=== PATIENT | male | born 1990 | race Caucasian/White ===

== ENCOUNTER 2016-07-29 14:12 | Observation (INO) | payer BC ==
[2016-07-29] MEDS ORDERED: NS 1,000 ML IV ONE ×2 (14:33→16:06)
[2016-07-29] MEDS ORDERED: DIAZEPAM 10 MG/2 ML SYR IVP ONE (14:35)
[2016-07-29] MEDS ORDERED: ONDANSETRON 4 MG/2 ML VIAL IVP ONE (14:36)
--- NOTE | 2016-07-29 14:40 | CPEKG ---
Heart Rate: 90 RR Interval: 667 P-R Interval: 164 QRSD Interval: 90 QT Interval: 360 QTC Interval: 441 P [place]: 83 QRS [place]: 82 T Wave [place]: 33 EKG Severity - NORMAL ECG - EKG Impression: SINUS RHYTHM Electronically Signed By: Mp Sol 29-Jul-2016 17:28:28
--- NOTE | 2016-07-29 14:43 | EDPHY ---
H & P Time Seen by Provider: 07/29/16 14:23 HPI/ROS: HPI Confusion, numbness in body. 25-year-old male by private vehicle with his friends. This patient reports that over the last 2 weeks he has had intermittent episodes of feeling fatigued and a sensation of numbness and tingling in his hands and feet. He reports that this morning he got up and then went out with his friends for a late lunch at a brew house. He had some barbecue and about 2 hours prior to arrival states he started developing a sensation of numbness and tingling in both hands and feet which then spread through his body. Reports that he then felt confused and was having a difficult time concentrating and focusing on his thoughts and answering questions. He states that he has had episodes similar to this but not as severe in the past. He denies any significant past medical history. No prescription medications. He denies any recent illness or infectious process. He does not have a headache. No neck pain. No fever. ROS: Constitutional: No fever, no chills. As above. Eyes: No discharge. No changes in vision. ENT: No sore throat. No nasal congestion or rhinorrhea. Respiratory: No cough. No shortness of breath. Cardiac: No chest pain, no palpitations. Gastrointestinal: No abdominal pain, no vomiting, no diarrhea. Genitourinary: No hematuria. No dysuria or increased frequency with urination. Musculoskeletal: No back pain. No neck pain. No myalgias or arthralgias. Skin: No rashes. Neurological: No headache. No focal weakness. As above. Past medical history: Social history: Nonsmoker. Denies drugs. Social alcohol. Here with his friends. Physical Exam: General Appearance: Alert but mildly sleepy. Difficulty concentrating and answering questions. Needs to refocus repeatedly. This patient appears well- hydrated and well-nourished. Eyes: Pupils equal and round no pallor or injection. No lid edema, erythema or injection. No photophobia. No nystagmus. ENT, Mouth: Mucous membranes are moist. The pharyngeal tissues are unremarkable. No edema or swelling. No asymmetry suggestive of abscess. No erythema or exudates. No tongue lacerations or abrasions. Respiratory: There are no retractions, lungs are clear to auscultation with good air movement bilaterally. Cardiovascular: Regular rate and rhythm. Borderline tachycardia. No murmur. Gastrointestinal: Abdomen is soft and nontender, no masses, bowel sounds normal. No focal tenderness at McBurney's point. No Vaughan sign. Neurological: Motor sensory function is grossly intact. Cranial nerves are normal. Gait is normal. Skin: Warm and dry, no rashes. Musculoskeletal: Neck is supple and nontender. No pain on flexion of the neck. Extremities are symmetrical. All joints range without pain or impingement. Psychiatric: No agitation. No depression. Database: EKG: EKG time is 2:38 p.m.; EKG shows a narrow complex normal sinus rhythm with a ventricular rate of 90. The AR, QRS, QT intervals are within normal limits. There are no ST-T wave changes indicative of ischemic or injury pattern. No evidence of right heart strain. Interpreted by me. Imaging: CT scan of head without contrast: Negative. Results were discussed with staff radiologist Dr. Jimenez Sebastian. Procedures: Emergency department course: IV placed. He was placed on a cardiac cath tech. Point of care glucose was 110. EKG performed. Patient will be sent for CT imaging of his brain. Patient's presentation is more consistent with an anxiety type reaction. Infectious etiology such as meningitis, encephalitis as well as CVA less likely. Patient given 5 mg of IV Valium. 3:20 p.m., patient re-evaluated. Resting comfortably. Mildly drowsy. Now responding to questions appropriately. States that he feels better. Still feels strange as in numbness in his hands and feet. Patient informed me that for the last couple of weeks he has had this sensation but not as bad, associated with eating and particularly after meals. Results of his diagnostic studies discussed with him. 4:00 p.m., discussed with on-call neurologist, Dr. Griffin Zacarias. Considered lumbar puncture. Dr. Zacarias is not think this is necessary at this time. I am in agreement. Patient's presentation is not consistent with meningitis, encephalitis or subarachnoid hemorrhage. Differential diagnosis discussed with Dr. Zacarias includes seizure, atypical migraine. Plan will be to obtain an MRI of the brain with and without contrast and start the patient on Topamax 25 mg twice daily. We will admit the patient to the hospitalist service. Dr. Zacarias will see this patient on admission to the floor. This plan was discussed with the patient and his friends. All of her questions were answered. The patient was admitted under the hospitalist service in stable and improved condition. Differential Diagnosis: The differential diagnosis on this patient includes but is not limited to anxiety reaction, seizure, hypokalemic periodic paralysis, CVA, toxicological etiology, MS, myasthenia gravis, Guillain-Abell syndrome, meningitis. This represents a partial list of diagnoses considered. These considerations are based on history, physical exam, past history, reassessment and diagnostic testing. Smoking Status: Unknown if ever smoked Constitutional: Initial Vital Signs Temperature (C) 36.9 C 07/29/16 14:17 Heart Rate 141 H 07/29/16 14:17 Respiratory Rate 38 H 07/29/16 14:17 Blood Pressure 123/104 H 07/29/16 14:17 O2 Sat (%) 94 07/29/16 14:17 O2 Delivery Mode Room Air Allergies/Adverse Reactions: No Known Allergies Allergy (Unverified 07/29/16 14:17) Home Medications: Medication Instructions Recorded NK [No Known Home Meds] 07/29/16 Medical Decision Making - Diagnostics Imaging Results: Imaging Impressions Head CT 07/29/16 14:34 Impression: Normal noncontrast CT of the brain. Results called to Dr. Cowan at 1515 p.m. at the time of the interpretation. - Data Points Laboratory Results: Laboratory Results 07/29/16 14:40 07/29/16 14:40 07/29/16 07/29/16 07/29/16 14:42 14:40 14:40 WBC RBC Hgb Hct MCV MCH MCHC RDW Plt Count MPV Neut % (Auto) Lymph % (Auto) [place] % (Auto) Eos % (Auto) Baso % (Auto) Nucleat RBC Rel Count Absolute Neuts (auto) Absolute Lymphs (auto) Absolute Monos (auto) Absolute Eos (auto) Absolute Basos (auto) Absolute Nucleated RBC Immature Gran % Immature Gran # PT 12.8 SEC SEC (12.0-15.0) INR 0.97 (0.83-1.16) APTT 23.8 SEC SEC (23.0-38.0) Sodium 141 mEq/L mEq/L (134-144) Potassium 4.0 mEq/L mEq/L (3.5-5.2) Chloride 105 mEq/L mEq/L (97-110) Carbon Dioxide 21 mEq/l L mEq/l (22-31) Anion Gap 15 mEq/L mEq/L (8-16) BUN 13 mg/dL mg/dL (7-23) Creatinine 1.6 mg/dL H mg/dL (0.7-1.3) Estimated GFR 53 Glucose 106 mg/dL H mg/dL (70-100) POC Glucose Calcium 10.4 mg/dL mg/dL (8.5-10.4) Total Bilirubin 1.1 mg/dL mg/dL (0.1-1.4) Conjugated Bilirubin 0.4 mg/dL mg/dL (0.0-0.5) Unconjugated Bilirubin 0.7 mg/dL mg/dL (0.0-1.1) AST 25 IU/L IU/L (17-59) ALT 28 IU/L IU/L (21-72) Alkaline Phosphatase 61 IU/L IU/L (38-126) Total Protein 8.6 g/dL H g/dL (6.3-8.2) Albumin 5.2 g/dL H g/dL (3.5-5.0) Urine Color COLORLESS Urine Appearance CLEAR Urine pH 8.0 H (5.0-7.5) Ur Specific [place] 1.001 L (1.002-1.030) Urine Protein NEGATIVE (NEGATIVE) Urine Ketones NEGATIVE (NEGATIVE) Urine Blood NEGATIVE (NEGATIVE) Urine Nitrate NEGATIVE (NEGATIVE) Urine Bilirubin NEGATIVE (NEGATIVE) Urine Urobilinogen NEGATIVE EU EU (0.2-1.0) Ur Leukocyte Esterase NEGATIVE (NEGATIVE) Urine RBC 1-3 /hpf /hpf (0-3) Urine WBC 1-3 /hpf /hpf (0-3) Ur Epithelial Cells TRACE /lpf /lpf (NONE-1+) Urine Bacteria TRACE /hpf H /hpf (NONE SEEN) Urine Glucose NEGATIVE (NEGATIVE) Urine Opiates Screen NEGATIVE (NEGATIVE) Urine Barbiturates NEGATIVE (NEGATIVE) Ur Phencyclidine Scrn NEGATIVE (NEGATIVE) Ur Amphetamine Screen NEGATIVE (NEGATIVE) U Benzodiazepines Scrn NEGATIVE (NEGATIVE) Urine Cocaine Screen NEGATIVE (NEGATIVE) U Marijuana (THC) Screen NEGATIVE (NEGATIVE) Ethyl Alcohol < 10 mg/dL mg/dL (0-10) 07/29/16 07/29/16 14:40 14:31 WBC 7.16 10^3/uL 10^3/uL (3.80-9.50) RBC 5.27 10^6/uL 10^6/uL (4.40-6.38) Hgb 17.1 g/dL g/dL (13.7-17.5) Hct 46.0 % % (40.0-51.0) MCV 87.3 fL fL (81.5-99.8) MCH 32.4 pg pg (27.9-34.1) MCHC 37.2 g/dL H g/dL (32.4-36.7) RDW 11.9 % % (11.5-15.2) Plt Count 230 10^3/uL 10^3/uL (150-400) MPV 9.6 fL fL (8.7-11.7) Neut % (Auto) 73.8 % % (39.3-74.2) Lymph % (Auto) 15.6 % % (15.0-45.0) [place] % (Auto) 9.5 % % (4.5-13.0) Eos % (Auto) 0.4 % L % (0.6-7.6) Baso % (Auto) 0.3 % % (0.3-1.7) Nucleat RBC Rel Count 0.0 % % (0.0-0.2) Absolute Neuts (auto) 5.28 10^3/uL 10^3/uL (1.70-6.50) Absolute Lymphs (auto) 1.12 10^3/uL 10^3/uL (1.00-3.00) Absolute Monos (auto) 0.68 10^3/uL 10^3/uL (0.30-0.80) Absolute Eos (auto) 0.03 10^3/uL 10^3/uL (0.03-0.40) Absolute Basos (auto) 0.02 10^3/uL 10^3/uL (0.02-0.10) Absolute Nucleated RBC 0.00 10^3/uL 10^3/uL (0-0.01) Immature Gran % 0.4 % % (0.0-1.1) Immature Gran # 0.03 10^3/uL 10^3/uL (0.00-0.10) PT INR APTT Sodium Potassium Chloride Carbon Dioxide Anion Gap BUN Creatinine Estimated GFR Glucose POC Glucose 110 mg/dL H mg/dL (70-100) Calcium Total Bilirubin Conjugated Bilirubin Unconjugated Bilirubin AST ALT Alkaline Phosphatase Total Protein Albumin Urine Color Urine Appearance Urine pH Ur Specific [place] Urine Protein Urine Ketones Urine Blood Urine Nitrate Urine Bilirubin Urine Urobilinogen Ur Leukocyte Esterase Urine RBC Urine WBC Ur Epithelial Cells Urine Bacteria Urine Glucose Urine Opiates Screen Urine Barbiturates Ur Phencyclidine Scrn Ur Amphetamine Screen U Benzodiazepines Scrn Urine Cocaine Screen U Marijuana (THC) Screen Ethyl Alcohol Medications Given: Discontinued Medications Diazepam (Valium Injection) 5 mg IVP EDNOW ONE Stop: 07/29/16 14:36 Last Admin: 07/29/16 15:04 Dose: 5 mg Fentanyl (Sublimaze) 50 mcg IVP EDNOW ONE Stop: 07/29/16 15:57 Last Admin: 07/29/16 15:57 Dose: 50 mcg Sodium Chloride (Ns) 1,000 mls @ 0 mls/hr IV ONCE ONE PRN Reason: Wide Open Stop: 07/29/16 14:34 Last Admin: 07/29/16 14:48 Dose: 1,000 mls Sodium Chloride (Ns) 1,000 mls @ 0 mls/hr IV ONCE ONE PRN Reason: Wide Open Stop: 07/29/16 16:07 Last Admin: 07/29/16 16:07 Dose: 1,000 mls Ondansetron HCl (Zofran) 4 mg IVP EDNOW ONE Stop: 07/29/16 14:37 Last Admin: 07/29/16 14:36 Dose: 4 mg Topiramate (Topamax) 25 mg PO EDNOW ONE Stop: 07/29/16 16:15 Last Admin: 07/29/16 16:29 Dose: 25 mg Point of Care Test Results: 07/29/16 14:31 POC Glucose 110 H Departure - Departure Disposition: [facility] Inpatient Acute Clinical Impression: Altered mental status, Migraine with typical aura
[2016-07-29 14:46] LABS: % IMMATURE GRANULYOCYTES 0.4 % (0.0-1.1); ABSOLUTE IMMATURE GRANULOCYTES 0.03 10^3/uL (0.00-0.10); ADD DIFF? NO; ADD MORPH? NO; ADD SCAN? NO; ATYPICAL LYMPHOCYTE FLAG 0 (0-99); FRAGMENT RBC FLAG 0 (0-99); HEMOGLOBIN 17.1 g/dL (13.7-17.5); LEFT SHIFT FLG 0 (0-99); LIPEMIA HEMOLYSIS FLAG 90 (0-99); MEAN CELL HEMOGLOBIN 32.4 pg (27.9-34.1); MEAN CELL HEMOGLOBIN CONCENTR. 37.2 g/dL (32.4-36.7); MEAN CELL VOLUME 87.3 fL (81.5-99.8); MEAN PLATELET VOLUME 9.6 fL (8.7-11.7); PLATELET CLUMPS FLAG 0 (0-99); PLATELET COUNT 230 10^3/uL (150-400); RED BLOOD CELL COUNT 5.27 10^6/uL (4.40-6.38); RED CELL DISTRIBUTION WIDTH 11.9 % (11.5-15.2)
[2016-07-29] MEDS ORDERED: ONDANSETRON 4 MG/2 ML VIAL ONE (14:53)
[2016-07-29 14:54] LABS: INR 0.97 (0.83-1.16); PROTIME(PATIENT) 12.8 SEC (12.0-15.0)
[2016-07-29 14:55] LABS: APTT 23.8 SEC (23.0-38.0)
[2016-07-29 14:55] LABS: COLOR COLORLESS; LEUKOCYTE ESTERASE,URINE NEGATIVE (NEGATIVE); NITRITE,URINE NEGATIVE (NEGATIVE)
[2016-07-29 15:01] LABS: BACTERIA TRACE /hpf (NONE SEEN)
[2016-07-29 15:25] LABS: ALANINE AMINOTRANSFERASE 28 IU/L (21-72); ALBUMIN 5.2 g/dL (3.5-5.0); ALKALINE PHOSPHATASE 61 IU/L (38-126); ANION GAP 15 mEq/L (8-16); ASPARTATE AMINOTRANSFERASE 25 IU/L (17-59); BILIRUBIN,TOTAL 1.1 mg/dL (0.1-1.4); BILIRUBIN-CONJUGATED 0.4 mg/dL (0.0-0.5); BILIRUBIN-UNCONJUGATED 0.7 mg/dL (0.0-1.1); CALCIUM 10.4 mg/dL (8.5-10.4); CARBON DIOXIDE 21 mEq/l (22-31); CHLORIDE 105 mEq/L (97-110); CREATININE 1.6 mg/dL (0.7-1.3); ETHANOL SERUM < 10 mg/dL (0-10); GLOMERULAR FILTRATION RATE 53; GLUCOSE 106 mg/dL (70-100); SODIUM 141 mEq/L (134-144); TOTAL PROTEIN 8.6 g/dL (6.3-8.2)
[2016-07-29] MEDS ORDERED: fentaNYL 100 MCG/2 ML INJ ONE (15:45)
[2016-07-29] MEDS ORDERED: fentaNYL 100 MCG/2 ML INJ IVP ONE (15:56)
[2016-07-29] MEDS ORDERED: TOPIRAMATE 25 MG TAB PO ONE (16:14)
[2016-07-29] MEDS ORDERED: GADOBUTROL 10 ML VIAL IVP ONE (16:30)
--- NOTE | 2016-07-29 17:02 | PDGENHP ---
History and Physical - Chief Complaint confusion and numbness - History of Present Illness This is a 25-year-old male with history of migraine headaches visiting from [place] presents to the emergency department today with confusion and numbness. Patient was seen with his friend in the room who tells me that they were at [employer] for lunch today where he became nauseous, confused, numb all over shortly after eating lunch. He was noted to be hyperventilating by his friend. Patient tells me that overall he feels "Terrible". He does have left-sided sharp stabbing headache behind his eye. The headache is worse with bright lights and loud noises. He has some nausea but no vomiting. Currently his numbness is better. Denies any chest pain or shortness of breath. I spoke to the patient's mother tells me that over the past 5 weeks he has been having increasing migraines which she attributes to stress at school. The patient has not reported any loss of consciousness however his friends tell me that he has been confused and has needed help with simple tasks like providing his insurance card. Denies any fevers or chills. He denies neck stiffness. History Information - Allergies/Home Medication List Allergies/Adverse Reactions: No Known Allergies Allergy (Unverified 07/29/16 14:17) Home Medications: NK [No Known Home Meds] 07/29/16 [Last Taken Unknown] I have personally reviewed and updated: family history, medical history, social history, surgical history - Past Medical History migraines - Surgical History Reports: no pertinent surgical hx - Social History Smoking Status: Unknown if ever smoked Alcohol Use: Occasionally Drug Use: None Review of Systems ROS: 10pt was reviewed & negative except for what was stated in HPI & below Physical Exam Temp Pulse Resp BP Pulse Ox 36.3 C 100 18 129/80 H 94 07/29/16 16:49 07/29/16 16:49 07/29/16 16:49 07/29/16 16:49 07/29/16 16:49 Constitutional: appears nourished, uncomfortable Eyes: PERRL, anicteric sclera, EOMI, No icteric sclera Ears, Nose, Mouth, Throat: moist mucous membranes, hearing normal, ears appear normal, no oral mucosal ulcers Cardiovascular: regular rate and rhythym, no murmur, rub, or gallop, No edema Respiratory: no respiratory distress, no rales or rhonchi, clear to auscultation Gastrointestinal: normoactive bowel sounds, soft, non-tender abdomen, no palpable masses, No guarding, No rebound Genitourinary: no bladder fullness, no bladder tenderness Skin: warm, normal color, no rashes or abrasions, no fluctuance, no induration, No mottled Musculoskeletal: full muscle strength, no muscle tenderness, normal joint ROM, no joint effusions Neurologic: AAOx3, CN II-XII Intact, No weakness, No numbness, No facial droop Psychiatric: interacting appropriately, not anxious, not encephalopathic, thought process linear Lab Data & Imaging Review 07/29/16 14:40 07/29/16 14:40 WBC 7.16 10^3/uL (3.80-9.50) 07/29/16 14:40 RBC 5.27 10^6/uL (4.40-6.38) 07/29/16 14:40 Hgb 17.1 g/dL (13.7-17.5) 07/29/16 14:40 Hct 46.0 % (40.0-51.0) 07/29/16 14:40 MCV 87.3 fL (81.5-99.8) 07/29/16 14:40 MCH 32.4 pg (27.9-34.1) 07/29/16 14:40 MCHC 37.2 g/dL (32.4-36.7) H 07/29/16 14:40 RDW 11.9 % (11.5-15.2) 07/29/16 14:40 Plt Count 230 10^3/uL (150-400) 07/29/16 14:40 MPV 9.6 fL (8.7-11.7) 07/29/16 14:40 Neut % (Auto) 73.8 % (39.3-74.2) 07/29/16 14:40 Lymph % (Auto) 15.6 % (15.0-45.0) 07/29/16 14:40 [place] % (Auto) 9.5 % (4.5-13.0) 07/29/16 14:40 Eos % (Auto) 0.4 % (0.6-7.6) L 07/29/16 14:40 Baso % (Auto) 0.3 % (0.3-1.7) 07/29/16 14:40 Nucleat RBC Rel Count 0.0 % (0.0-0.2) 07/29/16 14:40 Absolute Neuts (auto) 5.28 10^3/uL (1.70-6.50) 07/29/16 14:40 Absolute Lymphs (auto) 1.12 10^3/uL (1.00-3.00) 07/29/16 14:40 Absolute Monos (auto) 0.68 10^3/uL (0.30-0.80) 07/29/16 14:40 Absolute Eos (auto) 0.03 10^3/uL (0.03-0.40) 07/29/16 14:40 Absolute Basos (auto) 0.02 10^3/uL (0.02-0.10) 07/29/16 14:40 Absolute Nucleated RBC 0.00 10^3/uL (0-0.01) 07/29/16 14:40 Immature Gran % 0.4 % (0.0-1.1) 07/29/16 14:40 Immature Gran # 0.03 10^3/uL (0.00-0.10) 07/29/16 14:40 PT 12.8 SEC (12.0-15.0) 07/29/16 14:40 INR 0.97 (0.83-1.16) 07/29/16 14:40 APTT 23.8 SEC (23.0-38.0) 07/29/16 14:40 Sodium 141 mEq/L (134-144) 07/29/16 14:40 Potassium 4.0 mEq/L (3.5-5.2) 07/29/16 14:40 Chloride 105 mEq/L (97-110) 07/29/16 14:40 Carbon Dioxide 21 mEq/l (22-31) L 07/29/16 14:40 Anion Gap 15 mEq/L (8-16) 07/29/16 14:40 BUN 13 mg/dL (7-23) 07/29/16 14:40 Creatinine 1.6 mg/dL (0.7-1.3) H 07/29/16 14:40 Estimated GFR 53 07/29/16 14:40 Glucose 106 mg/dL (70-100) H 07/29/16 14:40 POC Glucose 110 mg/dL (70-100) H 07/29/16 14:31 Calcium 10.4 mg/dL (8.5-10.4) 07/29/16 14:40 Total Bilirubin 1.1 mg/dL (0.1-1.4) 07/29/16 14:40 Conjugated Bilirubin 0.4 mg/dL (0.0-0.5) 07/29/16 14:40 Unconjugated Bilirubin 0.7 mg/dL (0.0-1.1) 07/29/16 14:40 AST 25 IU/L (17-59) 07/29/16 14:40 ALT 28 IU/L (21-72) 07/29/16 14:40 Alkaline Phosphatase 61 IU/L (38-126) 07/29/16 14:40 Total Protein 8.6 g/dL (6.3-8.2) H 07/29/16 14:40 Albumin 5.2 g/dL (3.5-5.0) H 07/29/16 14:40 Urine Color COLORLESS 07/29/16 14:42 Urine Appearance CLEAR 07/29/16 14:42 Urine pH 8.0 (5.0-7.5) H 07/29/16 14:42 Ur Specific [place] 1.001 (1.002-1.030) L 07/29/16 14:42 Urine Protein NEGATIVE (NEGATIVE) 07/29/16 14:42 Urine Ketones NEGATIVE (NEGATIVE) 07/29/16 14:42 Urine Blood NEGATIVE (NEGATIVE) 07/29/16 14:42 Urine Nitrate NEGATIVE (NEGATIVE) 07/29/16 14:42 Urine Bilirubin NEGATIVE (NEGATIVE) 07/29/16 14:42 Urine Urobilinogen NEGATIVE EU (0.2-1.0) 07/29/16 14:42 Ur Leukocyte Esterase NEGATIVE (NEGATIVE) 07/29/16 14:42 Urine RBC 1-3 /hpf (0-3) 07/29/16 14:42 Urine WBC 1-3 /hpf (0-3) 07/29/16 14:42 Ur Epithelial Cells TRACE /lpf (NONE-1+) 07/29/16 14:42 Urine Bacteria TRACE /hpf (NONE SEEN) H 07/29/16 14:42 Urine Glucose NEGATIVE (NEGATIVE) 07/29/16 14:42 Urine Opiates Screen NEGATIVE (NEGATIVE) 07/29/16 14:42 Urine Barbiturates NEGATIVE (NEGATIVE) 07/29/16 14:42 Ur Phencyclidine Scrn NEGATIVE (NEGATIVE) 07/29/16 14:42 Ur Amphetamine Screen NEGATIVE (NEGATIVE) 07/29/16 14:42 U Benzodiazepines Scrn NEGATIVE (NEGATIVE) 07/29/16 14:42 Urine Cocaine Screen NEGATIVE (NEGATIVE) 07/29/16 14:42 U Marijuana (THC) Screen NEGATIVE (NEGATIVE) 07/29/16 14:42 Ethyl Alcohol < 10 mg/dL (0-10) 07/29/16 14:40 Imaging Review: Head CT was reviewed: Normal noncontrast CT of the brain. Visualized and Interpreted EKG results: Yes EKG Interpretation: Positive for: normal sinsus rhythm ( rate 90 beats per minute). Negative for: Q waves, ST elevation Assessment & Plan Assessment: This is a 25-year-old male visiting from [place] with history of migraine headaches presenting with: # generalized numbness most consistent with hyperventilation from likely panic attack # headache with nausea, photophobia, and phonophobia most likely due to migraine Dr. Zacarias would also like to pursue the diagnosis of partial seizure # elevated creatinine with unknown baseline plan: - Place in observation - supportive care of migraine headache with Tylenol and oxycodone as needed. NSAIDs are contraindicated in the setting of his elevated creatinine. - I discussed the case with Dr. Sol who has been in contact with Dr. Zacarias from Neurology will see the patient in consultation. He is recommended starting Topamax 25 mg p. o. twice a day. - Neurology has also requested a MRI of the brain with and without contrast - start IV fluids and repeat creatinine in the morning. - If his creatinine continues to be elevated recommended renal ultrasound in the morning or to be done as an outpatient upon return to [place].
[2016-07-29] MEDS ORDERED: ONDANSETRON 4 MG/2 ML VIAL IVP PRN (17:27)
[2016-07-29] MEDS ORDERED: PROMETHAZINE HCL 25 MG/ML INJ IVP PRN (17:27)
[2016-07-29] MEDS ORDERED: ACETAMINOPHEN 325 MG TAB PO PRN (17:27)
[2016-07-29] MEDS ORDERED: oxyCODONE IR 5 MG TAB PO PRN (17:28)
[2016-07-29] MEDS ORDERED: D5W 1/2 NS W/ 20 KCl/L 1,000 ML IV SCH (17:30)
[2016-07-29] MEDS: TOPIRAMATE 25 MG TAB PO SCH (20:11)
[2016-07-29 23:59] VITALS: RESP 16
[2016-07-30 05:25] LABS: % IMMATURE GRANULYOCYTES 0.3 % (0.0-1.1); ABSOLUTE IMMATURE GRANULOCYTES 0.03 10^3/uL (0.00-0.10); ADD DIFF? NO; ADD MORPH? NO; ADD SCAN? NO; ATYPICAL LYMPHOCYTE FLAG 0 (0-99); FRAGMENT RBC FLAG 0 (0-99); HEMATOCRIT 39.1 % (40.0-51.0); HEMOGLOBIN 14.3 g/dL (13.7-17.5); LEFT SHIFT FLG 0 (0-99); LIPEMIA HEMOLYSIS FLAG 90 (0-99); MEAN CELL HEMOGLOBIN 32.6 pg (27.9-34.1); MEAN CELL HEMOGLOBIN CONCENTR. 36.6 g/dL (32.4-36.7); MEAN CELL VOLUME 89.1 fL (81.5-99.8); PLATELET CLUMPS FLAG 0 (0-99); PLATELET COUNT 202 10^3/uL (150-400); RED BLOOD CELL COUNT 4.39 10^6/uL (4.40-6.38); RED CELL DISTRIBUTION WIDTH 12.1 % (11.5-15.2)
[2016-07-30 05:48] LABS: ANION GAP 8 mEq/L (8-16); CALCIUM 8.9 mg/dL (8.5-10.4); CARBON DIOXIDE 24 mEq/l (22-31); CHLORIDE 108 mEq/L (97-110); GLOMERULAR FILTRATION RATE > 60; GLUCOSE 110 mg/dL (70-100); POTASSIUM 3.9 mEq/L (3.5-5.2); SODIUM 140 mEq/L (134-144)
[2016-07-30] MEDS: TOPIRAMATE 25 MG TAB PO SCH (09:06)
--- NOTE | 2016-07-30 10:18 | HOSPPROG ---
Hospitalist Progress Note Assessment/Plan: #Flushing/"dizziness": upon my interview, he reports a flushing, "foggy" feeling after eating and often needing to defecate. Most of his symptoms seem to correlate with eating -would consider carcinoid syndrome with 24 hr 5[facility] outpatient #Numbness/migrane: resolved. CTH, MRI negative. Neuro evaluated, add Topamax Subjective: no headache today Objective: Vital Signs Temp Pulse Resp BP Pulse Ox 37.1 C 66 16 114/66 93 07/30/16 04:00 07/30/16 04:00 07/30/16 04:00 07/30/16 04:00 07/30/16 04:00 Laboratory Results 07/30/16 04:26 07/30/16 04:26 07/29/16 07/30/16 07/31/16 05:59 05:59 05:59 Intake Total 3550 Balance 3550 PT 12.8 SEC (12.0-15.0) 07/29/16 14:40 INR 0.97 (0.83-1.16) 07/29/16 14:40 - Physical Exam Constitutional: no apparent distress Eyes: PERRL Ears, Nose, Mouth, Throat: moist mucous membranes, hearing normal Cardiovascular: regular rate and rhythym, no murmur, rub, or gallop Respiratory: no respiratory distress, no rales or rhonchi Gastrointestinal: normoactive bowel sounds, soft, non-tender abdomen Skin: warm Neurologic: AAOx3, CN II-XII Intact Psychiatric: interacting appropriately, not anxious ICD10 Worksheet Patient Problems: Problems Problem Status Onset Altered mental status Acute Migraine with typical aura Acute
[2016-07-30 11:55] VITALS: BP 120/60; PULSE 78; TEMP 98.3; O2SAT 95
--- NOTE | 2016-07-30 15:12 | GDS ---
[f rep st] DISCHARGE SUMMARY DISCHARGE DIAGNOSES: 1. Generalized numbness. 2. Acute encephalopathy. 3. Headache, likely migraine. 4. Acute kidney injury. HISTORY OF PRESENT ILLNESS: The patient is a 25-year-old male with history of migraines, visiting from [place], who presented to the emergency room with confusion and numbness. His friend was in with him, stating they were at [employer] for lunch when he became very nauseated, confused, and numb all over shortly after eating. He was noted to be hyperventilating. Patient said he was feeling terrible. He complained of left-sided sharp stabbing headache behind his eye that was worse with bright lights and loud noises. He had some mild nausea, but no vomiting. At time of admission, his numbness was better. He denied chest pain, shortness of breath. The admitting physician spoke with the patient's mother, who said over the past week he has been having more migraines, which he attributes to stress at school. Patient notes these similar symptoms when he drinks alcohol and is hung over. He also reports after eating he has flushing, sweats, and an urgent need to defecate. This was confirmed by his girlfriend. HOSPITAL COURSE BY PROBLEM: 1. Acute encephalopathy: This likely is secondary to a migraine. His U-tox was negative. CT head and MRI were reassuring, negative for acute ischemia. He was evaluated by Neurology. Suspect this is likely secondary to a migraine. He was started on Topamax q.h.s. and is to follow up with his PCP. 2. Generalized numbness: Again, suspect this is a migraine variant. No evidence of a subacute stroke. 3. BALAJI: Secondary to dehydration. The patient visiting from [place] and likely not drinking as much water as needed. This improved with IV fluids. 4. Flushing/defecating episodes: The patient and his girlfriend report episodes after meals of flushing, mild nausea, and need to defecate. Could be related to these migraines, but recommend to consider carcinoid syndrome evaluation if this was to be persistent. DISPOSITION: Patient is stable for discharge. NEW MEDICATIONS: Topamax 25 mg q.h.s. FOLLOWUP: PCP. /[id number]/TORIL MTDD
--- NOTE | 2016-07-30 15:39 | NEUROPROG ---
Assessment: CC: Dr. Sherri Callahan, hospitalist, consulted for Tingling. Results placed in EMR for her review. HPI: This 25M patient was initially seen 07/30/16 as an inpt consult at [facility]. He developed sudden onset whole body tingling, confusion, and nausea on 07/29/16 which caused secondary anxiety. This later progressed to a headache. He was brought to the [facility] ER and admitted for further evaluation. His mother reported 5 weeks of worsening migraine headaches. This prompted neurology consult. PMHx: migraines, Home Meds: none All: none SHx: occasional alcohol FHx: mother alive ROS: Pt denied acute fever, total vision loss, active severe chest pain, respiratory failure, total body severe rash, total bowel/bladder incontinence, psychosis, active seizures, or active bleeding O: VS bp 120/60 P78 RR16 Satting 95% RA Temp 36.8C General: Alert Eyes: Fundoscopic exam not able to visualize optic disks CV: Heart RRR, no murmur, no carotid bruit Lungs: Clear to auscultation bilaterally, no rhonci or rales Neuro: - Mental: . Oriented x person/place/date . concentration appears normal . speech fluency/comprehension normal . memory appears normal . fund of knowledge appear intact - Cranial Nerves: . II: PERRL, VFFTC . III/IV/: EOMI, no nystagmus, normal smooth pursuits, no Ptosis . V: facial sensation intact to LT . VII: face symmetric to eye closure and smile . VIII: hearing intact to conversation . IX/X: uvula raises symmetrically . XI: SCM 5/5 B/L strength . XII: tongue protrudes midline w/nl strength - Motor: . Tone: normal tone in all 4 extrem . 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 Given normal neurologic exam and normal brain MRI w/o con on 07/29/16, I doubt alternative causes. I feel his episodic spells of anxiety, paresthesias, confusion, and headache likely represent migraine with atypical features. I would focus on migraine treatment and see if all his symptoms resolve with good migraine control. 2.Flushing feeling after eating: Hospitalist concerned for possible carcinoid syndrome and recommend otpt eval by PCM Plan: -Discharge on topamax 25mg po qhs for migraine prophylaxis -F/U with otpt PCM back in [place], consider referral to neurologist to manage migraines if PCM not comfortable with topamax -F/U with otpt PCM back in [place] for evaluation of carcinoid syndrome per hospitalist recommendation Objective: Vital Signs Temp Pulse Resp BP Pulse Ox 36.8 C 78 16 120/60 95 07/30/16 11:53 07/30/16 11:53 07/30/16 11:53 07/30/16 11:53 07/30/16 11:53 Laboratory Results 07/30/16 04:26 07/30/16 04:26 07/29/16 07/30/16 07/31/16 05:59 05:59 05:59 Intake Total 3550 250 Balance 3550 250 PT 12.8 SEC (12.0-15.0) 07/29/16 14:40 INR 0.97 (0.83-1.16) 07/29/16 14:40 Allergies/Adverse Reactions: No Known Allergies Allergy (Unverified 07/29/16 14:17)
[2016-07-31] MEDS ORDERED: TOPIRAMATE 25 MG TAB PO SCH (09:00)
== END 2016-07-30 14:49 | disposition home or self-care (01) ==
LOC: F3N 17:42
PROVIDERS: ADMIT Family Medicine; ATTEND Family Medicine
DX: G93.40 Encephalopathy, unspecified (principal); R51 Headache; R20.0 Anesthesia of skin; N17.9 Acute kidney failure, unspecified; E86.0 Dehydration
CPT/HCPCS: 70450; 70553; 93005; G0378; 80305; 82947-QW; 96374; A9585; G0480; J2405; J3010